=== PATIENT | male | born 1950 | race Hispanic/Latino ===

== ENCOUNTER 2023-10-04 21:36 | Emergency (ER) | payer SELFPAY ==
[~2023-10-04] VITALS: Ht 162.6 cm; Wt 68.0 kg
[2023-10-04 22:40] VITALS: BP 153/84
[2023-10-04 23:01] VITALS: BP 144/76
[2023-10-04 23:06] LABS: BASO% 0.9 % (0-3); EOS% 2.6 % (0-8); HEMATOCRIT 38.3 % (39.0-50.0); HEMOGLOBIN 12.7 g/dl (14.0-18.0); IMMATURE GRANULOCYTES 0.1 % (0.0-5.0); LYMPH% 16.6 % (15-41); MEAN CORPUSCULAR HGB 30.2 pG CALC (26.0-32.0); MEAN CORPUSCULAR HGB CONC 33.2 g/dL CAL (32.0-36.0); MONO% 5.7 % (2-13); NEUT# 5.21 thou/uL (1.82-7.42); NEUT% 74.1 % (42-76); RED BLOOD COUNT 4.21 mill/uL (4.70-6.10); RED CELL DISTRI WIDTH 12.6 % (11.5-15.5)
[2023-10-04 23:19] LABS: CREATININE 0.9 mg/dL (0.7-1.3); POTASSIUM 3.6 mmol/l (3.5-5.1)
[2023-10-04] MEDS ORDERED: SULFAMETHOXAZOLE W/TRIMETHOPRI 1 COMBO TAB PO ONE (23:40)
[2023-10-04] MEDS ORDERED: MAGNESIUM CITRATE 296 ML/BTL PO ONE (23:40)
[2023-10-04] MEDS ORDERED: BACTRIM DS1 TAB PO (23:58)
[2023-10-05 00:04] LABS: URINE BLOOD DIPSTICK Large (NEGATIVE); URINE COLOR Red; URINE GLUCOSE - DIPSTICK 250 mg/dL (NEGATIVE); URINE KETONE 80 mg/dL (NEGATIVE); URINE LEUK ESTERASE Large (NEGATIVE); URINE NITRITE - DIPSTICK Positive (Negative); URINE PH >=9.0 (4.5-8.0); URINE PROTEIN - DIPSTICK >=300 mg/dL (NEG-TRACE); URINE UROBILINOGEN - DIPSTICK >=8.0 E.U./dL (0.2)
[2023-10-05 00:23] LABS: URINE BACTERIA FEW hpf; URINE RBC >100 RBC/hpf (0-5); URINE SQUAMOUS EPITHELIAL CELL FEW EPI/hpf (0-FEW)
[2023-10-05] MEDS ORDERED: SODIUM CHLORIDE 0.9% 10 ML SYR IR ONE ×2 (00:30)
[2023-10-05 00:50] VITALS: BP 144/76
== END 2023-10-05 00:50 | disposition home or self-care (01) | DRG 694 ==
LOC: ED 21:36
PROVIDERS: Family Medicine
PROC: 0T9B70Z Drainage of Bladder with Drainage Device, Via Natural or Artificial Opening (ICD-10-PCS; principal; 2023-10-04)
DX: N21.0 Calculus in bladder (principal); K59.00 Constipation, unspecified; R31.9 Hematuria, unspecified